=== PATIENT | male | born 1980 | race Caucasian/White ===

== ENCOUNTER 2020-06-17 10:11 | Emergency (ER) | payer OTHER, SELFPAY ==
[2020-06-17 10:50] VITALS: BP 138/88; PULSE 90; RESP 14; TEMP 36.1; O2SAT 98
--- NOTE | 2020-06-17 11:15 | ED.DENTAL ---
HPI - Dental/Oral General Chief complaint: Dental/Oral Stated complaint: right side of jaw swollen Time Seen by Provider: 06/17/20 11:07 Source: patient Mode of arrival: ambulatory Limitations: no limitations History of Present Illness HPI Narrative: Patient presents today with a 3-week history of a broken left lower bottom tooth. Reports swelling to the left lower jaw x2 days that has been significantly worse since yesterday. 3 weeks ago and the tooth broke, patient took 4 days of leftover amoxicillin, and states the symptoms improved a little bit, but then worsened again. Denies fever, shortness of breath, or difficulty swallowing. Currently rates his pain 5/10 and took his home tramadol approximately 1 hour prior to arrival, which has helped with the pain. Patient does have a dentist, but did not want to call them on the weekend. MD Complaint: tooth pain Related Data Home Medications Medication Instructions Recorded Confirmed Skelaxin PO DAILY 06/17/20 Tylenol 1,000 mg PO BID 06/17/20 06/17/20 gabapentin 600 mg PO TID 06/17/20 06/17/20 ibuprofen [Motrin] 800 mg PO BID 06/17/20 06/17/20 lisinopril-hydrochlorothiazide 20 tablet PO DAILY 06/17/20 06/17/20 tramadol 50 mg PO TID 06/17/20 06/17/20 Allergies Allergy/AdvReac Type Severity Reaction Status Date / Time buspirone [BuSpar] Allergy Intermediate Other Verified 06/17/20 10:53 duloxetine [Cymbalta] Allergy Intermediate Unknown Verified 06/17/20 10:53 Sulfa (Sulfonamide Allergy Rash Verified 06/17/20 10:53 Antibiotics) Review of Systems Review of Systems: Narrative: CONSTITUTIONAL: Denies body aches, fever, chills, or sweats. EYES: Denies visual changes, redness, or discharge. ENT: Denies rhinorrhea, congestion, sore throat, or otalgia.+ Left lower tooth pain and facial swelling CARDIOVASCULAR: Denies chest pain, palpitations, or edema. RESPIRATORY: Denies cough or dyspnea. GASTROINTESTINAL: Denies abdominal pain, nausea, vomiting, or diarrhea. GENITOURINARY: Denies dysuria or hematuria. SKIN: Denies rash, itching, or wounds. MUSCULOSKELETAL: Denies back pain, joint pain, or myalgia. NEUROLOGIC: Denies headache, numbness, tingling, or weakness. PSYCH: Denies depression or anxiety. [facility] Past Medical History Medical History (Updated 06/17/20 @ 11:21 by Sharyn Rowell, [facility], ) History of Clostridium difficile infection History of MRSA infection Red man syndrome Family History Family History (Updated 04/03/14 @ 00:00 by CONVUSER A) Father Hypertension Family history of type 2 diabetes mellitus Social History Social History Smoking status: Former smoker Comments At time of signature, I have reviewed and agree with nursing past medical, surgical, social and family history unless otherwise noted. Please see nursing chart for further information. There is no relevant family history pertinent to the presenting complaint Exam Narrative: Exam Narrative: GENERAL: Well-appearing, well-nourished, and in no acute distress. HEAD: Normocephalic, atraumatic. EYES: EOMI. No redness or drainage. ENT: Mucous membranes pink and moist. Nares clear. No rhinorrhea. Throat normal. Uvula midline. Lateral half of tooth #18 is broken off at the gumline and the root area is brown in color. Surrounding gumline is edematous. Patient has mild to moderate left lower jaw swelling as well. NECK: Normal AROM. Supple. No lymphadenopathy. CHEST: No respiratory distress. Clear to auscultation. HEART: Regular rate and rhythm. No murmur appreciated. Normal peripheral pulses. EXTREMITIES: Normal range of motion. No edema. SKIN: Warm, dry, no rash. Capillary refill normal. Normal skin turgor. NEURO: No focal deficits. Alert and oriented x3. Gait steady. PSYCH: Normal affect. No signs of depression or anxiety. Course Vital Signs Vital signs: Vital Signs Temperature 97 F L 06/17/20 10:50 Pulse Rate 90 06/17/20 10:50 Respiratory Rate 14 06/17/20
== END 2020-06-17 11:29 | disposition home or self-care (01) ==
PROVIDERS: Emergency Provider Nurse Practitioner; PCP Physician Assistant
DX: K04.7 Periapical abscess without sinus (principal); S02.5XXA Fracture of tooth (traumatic), initial encounter for closed fracture; X58.XXXA Exposure to other specified factors, initial encounter; Z86.19 Personal history of other infectious and parasitic diseases; I10 Essential (primary) hypertension
CPT/HCPCS: 99203; G0463

== ENCOUNTER 2021-04-04 15:16 | Outpatient (CLI) | payer OTHER, SELFPAY ==
[2021-04-04 15:57] LABS: SARS-CoV-2 Ag Positive (Negative)
== END 2021-04-04 15:17 | disposition home or self-care (01) ==
LOC: CHSLAB 15:19
PROVIDERS: PCP Physician Assistant; Visit Provider Physician Assistant
DX: U07.1 COVID-19 (principal)
CPT/HCPCS: 87426; C9803